=== PATIENT | male | born 1945 | race Caucasian/White ===

== ENCOUNTER 2017-09-10 15:46 | Emergency (ER) | payer OTHER ==
[~2017-09-10] VITALS: Ht 175.3 cm; Wt 99.9 kg
[~2017-09-10 15:46] MED LIST: ARTHROTEC 751 TABLET PO; Ecotrin PO; GLUCOPHAGE500 MG PO; Glucophage PO; LIPITOR10 MG PO; LOTREL 10/21 CAPSULE PO; LOTREL 5/101 CAPSULE PO; LOTREL 5/401 CAPSULE PO; Omega III EPA + DHA PO; THERAGRAN1 TABLET PO
[2017-09-10 17:42] LABS: MCH 32.5 PG (29.0-34.0); MCHC 35.2 G/DL (30.0-36.0); MCV 92.2 FL (86-99); PLATELET COUNT 207 K/uL (156-360); RBC DIS.WIDTH-CV 11.7 % (11.8-14.6); RBC DIS.WIDTH-SD 39.4 % (39-53); RED BLOOD COUNT 4.77 M/uL (4.00-5.50); WHITE BLOOD COUNT 8.1 K/uL (4.1-10.2)
[2017-09-10] MEDS ORDERED: KEFLEX500 MG PO (17:49)
[2017-09-10 17:51] LABS: CHLORIDE 106 mEq/L (99-109); POTASSIUM 4.8 mEq/L (3.7-5.4); SODIUM 138 mEq/L (136-147)
[2017-09-10 17:52] LABS: GLUCOSE 212 mg/dL (70-99)
[2017-09-10 17:54] LABS: ANION GAP 9 MEQ/L (2-14)
[2017-09-10 17:56] LABS: GFR ESTIMATE (CALCULATED) > 59 mL/min/
[2017-09-10 17:57] LABS: UREA NITROGEN (BUN) 23 mg/dL (9-23)
[2017-09-10 18:12] VITALS: BP 173/99
== END 2017-09-10 18:12 | disposition home or self-care (01) ==
LOC: EME 15:46
PROVIDERS: Physician Assistant
DX: L03.116 Cellulitis of left lower limb (principal); I10 Essential (primary) hypertension; E11.9 Type 2 diabetes mellitus without complications; Z79.84 Long term (current) use of oral hypoglycemic drugs; Z79.82 Long term (current) use of aspirin; Z87.891 Personal history of nicotine dependence
CPT/HCPCS: 80048; 83605; 85027; 93971; 99281; 99284

== ENCOUNTER → 2017-12-10 | Outpatient (CLI) | payer OTHER ==
[~2017-12-10] MED LIST changes: +JANUVIA25 M1 PO; +KEFLEX500 MG PO; +METFORMIN HCL1000 MG PO
== END | disposition home or self-care (01) ==
LOC: PICC 12:25
DX: M86.9 Osteomyelitis, unspecified (principal)